=== PATIENT | female | born 1995 | race Caucasian/White ===

== ENCOUNTER 2019-01-12 02:30 | Emergency (ER) | payer SELFPAY ==
[~2019-01-12] VITALS: Ht 167.6 cm; Wt 68.0 kg
[2019-01-12 02:50] VITALS: BP 120/58
--- NOTE | 2019-01-12 03:26 | PHYS DOC ---
Adult General Chief Complaint Chief Complaint: SEIZURE HPI HPI Patient is a 23 year old female with history of seizure who presents with complaining of seizure. Patient has had episodes of seizures since August [id number] and started on Keppra 1 month ago after extensive evaluation at [facility] including CT, MRI, EEG and multiple blood tests. Patient had 1 episode of unwitnessed seizure tonight and was confused after the seizure and her roommates recommended to come to emergency room. Patient denies missing her medication, using alcohol or drug or tobacco, lack of asleep, stressful condition. Patient states her last episode of seizure before tonight was one month ago. Review of Systems Review of Systems Constitutional: Denies fever or chills [] Eyes: Denies change in visual acuity, redness, or eye pain [] HENT: Denies nasal congestion or sore throat [] Respiratory: Denies cough or shortness of breath [] Cardiovascular: No additional information not addressed in HPI [] GI: Denies abdominal pain, nausea, vomiting, bloody stools or diarrhea [] : Denies dysuria or hematuria [] Musculoskeletal: Denies back pain or joint pain [] Integument: Denies rash or skin lesions [] Neurologic: Denies headache, focal weakness or sensory changes [] Endocrine: Denies polyuria or polydipsia [] All other systems were reviewed and found to be within normal limits, except as documented in this note. Physical Exam Physical Exam Constitutional: Well developed, well nourished, mild distress, non-toxic appearance. [] HENT: Normocephalic, atraumatic. Eyes: PERRLA, EOMI, conjunctiva normal, no discharge. [] Neck: Normal range of motion, no tenderness, supple, no stridor. [] Cardiovascular:Heart rate regular rhythm, no murmur [] Lungs & Thorax: Bilateral breath sounds clear to auscultation [] Abdomen: Bowel sounds normal, soft, no tenderness, no masses, no pulsatile masses. [] Skin: Warm, dry, no erythema, no rash. [] Back: No tenderness, no CVA tenderness. [] Extremities: No tenderness, no cyanosis, no clubbing, ROM intact, no edema. [] Neurologic: Alert and oriented X 3, no focal deficits noted. [] Psychologic: Affect normal, judgement normal, mood normal. [] EKG EKG [] Radiology/Procedures Radiology/Procedures [] Course & Med Decision Making Course & Med Decision Making Pertinent Labs reviewed. (See chart for details) Evaluation of patient in ER showed 23-year-old female patient with history of seizure presented to ER with complaining of unwitnessed seizure and postictal condition resolved at arrival to ER. Recent had unremarkable physical exam and blood sugar. Patient was advised to continue current medication and follow up with her neurologist at [facility]. Dragon Disclaimer Dragon Disclaimer This electronic medical record was generated, in whole or in part, using a voice recognition dictation system. Departure Departure Impression: Primary Impression: Recurrent seizures Disposition: HOME, SELF-CARE (at 0325) Condition: STABLE Patient Instructions: Seizure Disorder, Child, Generalized Tonic-Clonic Additional Instructions: Continue current seizure medication Follow-up with your primary care physician in 3-5 days Return to ER if not getting better KENN TRAN MD Jan 12, 2019 03:26
== END 2019-01-12 03:57 | disposition home or self-care (01) ==
LOC: ER 02:30
DX: G40.909 Epilepsy, unspecified, not intractable, without status epilepticus (principal)
CPT/HCPCS: 82962; 99283